=== PATIENT | female | born 1960 | race Caucasian/White ===

== ENCOUNTER 2016-09-02 23:14 | Inpatient (IN) | payer MEDICARE, MEDICAID ==
[~2016-09-02] VITALS: Ht 170.2 cm; Wt 76.8 kg
[~2016-09-02 23:14] MED LIST: AMIT25TA; AMLO5TAB2; ASPI-496; ATOR40TA78 PO; CLEM2.68 PO; DIAZ10TA4 PO; DIVA500T9; FAMO20TA7; FLUO20CA8; FURO-92 PO; GABA300C10 PO; HYDR-3138; HYDR-882 PO; HYDR50TA3; METH500T7 PO; METO25TA35; NITR0.4T SL; OMEP20TA62 PO; POTA10TA31; QUET50TA8; SIMV40TA
[2016-09-02] MEDS ORDERED: SODIUM CHLORIDE 0.9% 1,000 ML IV ONE (23:34)
[2016-09-03 00:09] LABS: ASPARTATE AMINO TRANSFERASE 18 U/L (15-37); BLOOD UREA NITROGEN 21 mg/dL (7-18)
[2016-09-03 00:17] LABS: ACETAMINOPHEN 5 mcg/mL (10-30)
[2016-09-03] MEDS: NS + 40MEQ KCL 1,000 ML IV SCH ×2 (01:00→06:00)
[2016-09-03] MEDS ORDERED: POTASSIUM CHLORIDE 20 MEQ TAB.ER.PRT PO ONE (01:00)
[2016-09-03] MEDS ORDERED: MAGNESIUM SULFATE PMX 2GM/50ML 50 ML IV ONE (01:00)
[2016-09-03] MEDS ORDERED: OMNIPAQUE 350 MG/ML, 100ML BOTTLE ONE (01:09)
[2016-09-03] MEDS ORDERED: POTASSIUM CHLORIDE 20 MEQ TAB.ER.PRT ONE (01:20)
[2016-09-03] MEDS ORDERED: NS + 40MEQ KCL 1,000 ML IV ONE (01:29)
[2016-09-03] MEDS ORDERED: ONDANSETRON 2MG/ML, 2ML IVPush PRN (02:00)
[2016-09-03] MEDS ORDERED: LORazepam 2 MG/ML, 1ML IVPush PRN (02:00)
[2016-09-03] MEDS ORDERED: NITROGLYCERIN 0.4 MG BOTTLE (25 TABS) SL PRN (02:00)
[2016-09-03] MEDS ORDERED: NICOTINE 21 MG/24 HR PATCH.TD24 TD ONE (02:30)
[2016-09-03] MEDS ORDERED: PLEASE ENTER WEIGHT MC SCH (02:30)
[2016-09-03 02:35] VITALS: BP 123/67
[2016-09-03] MEDS ORDERED: MORPHINE SULFATE 4 MG/ML, 1ML ONE (03:24)
[2016-09-03] MEDS: morphine SULFATE 10 MG/ML, 1ML IVPush PRN (03:28)
[2016-09-03] MEDS: ENOXAPARIN 40 MG/0.4 ML SQ SCH (06:30)
[2016-09-03] MEDS: FAMOTIDINE 20 MG/2 ML IVPush SCH ×2 (09:20→21:00)
[2016-09-03] MEDS: FLUOXETINE 20 MG CAPSULE PO SCH (09:20)
[2016-09-03] MEDS: GABAPENTIN 300 MG CAPSULE PO SCH ×3 (09:20→21:00)
[2016-09-03] MEDS ORDERED: SODIUM CHLORIDE 0.9% 1,000 ML IV SCH (10:00)
[2016-09-03] MEDS ORDERED: ATORVASTATIN 40 MG TABLET PO SCH (21:00)
[2016-09-04] MEDS: morphine SULFATE 10 MG/ML, 1ML IVPush PRN ×3 (04:30→15:35)
[2016-09-04] MEDS: ENOXAPARIN 40 MG/0.4 ML SQ SCH (06:40)
[2016-09-04 07:15] VITALS: BP 127/62
[2016-09-04] MEDS: GABAPENTIN 300 MG CAPSULE PO SCH ×2 (10:55→16:10)
[2016-09-04] MEDS: FAMOTIDINE 20 MG/2 ML IVPush SCH (10:55)
[2016-09-04] MEDS: FLUOXETINE 20 MG CAPSULE PO SCH (10:55)
[2016-09-04] MEDS ORDERED: DIVA500T17 PO (14:59)
[2016-09-04] MEDS ORDERED: MAGNESIUM SULFATE PMX 2GM/50ML 50 ML IV ONE ×2 (15:00→15:30)
[2016-09-04] MEDS ORDERED: NICOTINE 21 MG/24 HR PATCH.TD24 TD SCH (15:00)
[2016-09-04 15:29] VITALS: BP 117/77
[2016-09-04] MEDS ORDERED: SODIUM CHLORIDE FLUSH 3ML SYRINGE IVF SCH (21:00)
[2016-09-04] MEDS ORDERED: DIVALPROEX 500 MG TABLET.DR PO SCH (21:00)
[2016-09-06 12:48] LABS: ASPARTATE AMINO TRANSFERASE 11 U/L (15-37); BLOOD UREA NITROGEN 6 mg/dL (7-18)
== END 2016-09-04 20:25 | disposition left against medical advice (07) | DRG 641 ==
LOC: ED 23:59 → EDIP 09-03 01:11 → 5SO 09-03 02:09
PROVIDERS: ADMIT Internal Medicine; ATTEND Internal Medicine
DX: E86.0 Dehydration (principal); R55 Syncope and collapse; E78.5 Hyperlipidemia, unspecified; E83.42 Hypomagnesemia; E87.6 Hypokalemia; F17.200 Nicotine dependence, unspecified, uncomplicated; I10 Essential (primary) hypertension; I95.9 Hypotension, unspecified; M54.9 Dorsalgia, unspecified; G89.29 Other chronic pain; W18.39XA Other fall on same level, initial encounter; I25.2 Old myocardial infarction; Z80.1 Family history of malignant neoplasm of trachea, bronchus and lung; Z86.19 Personal history of other infectious and parasitic diseases; Y93.89 Activity, other specified; Y92.098 Other place in other non-institutional residence as the place of occurrence of the external cause; Z88.0 Allergy status to penicillin; Y99.8 Other external cause status
CPT/HCPCS: 36415; 70450; 71010; 72125; 74177; 80053; 80307; 80329; 82010; 82140; 83036; 83690; 83735; 84100; 84443; 85025; 85610; 86850; 86900; 93005; 96360; 96361; J1650; Q9967; G0480; J2270; J3475; J3480; J7030; S0028

== ENCOUNTER 2016-09-07 02:07 | Emergency (ER) | payer MEDICARE, MEDICAID ==
[~2016-09-07] VITALS: Ht 170.2 cm; Wt 76.0 kg
[~2016-09-07 02:07] MED LIST changes: +DIVA500T17 PO
[2016-09-07] MEDS ORDERED: ASPIRIN 81 MG TABLET CHEW ONE (02:50)
[2016-09-07] MEDS ORDERED: ASPIRIN 81 MG TABLET CHEW PO ONE (03:00)
[2016-09-07 03:02] LABS: ASPARTATE AMINO TRANSFERASE 13 U/L (15-37); BLOOD UREA NITROGEN 14 mg/dL (7-18)
[2016-09-07 03:09] LABS: IS PT STATUS REG ER OR PRE ER? YES
[2016-09-07 04:27] VITALS: BP 112/63
== END 2016-09-07 04:29 | disposition home or self-care (01) ==
LOC: ED 03:27
DX: R07.89 Other chest pain (principal); J44.9 Chronic obstructive pulmonary disease, unspecified; I10 Essential (primary) hypertension; I25.2 Old myocardial infarction; F17.210 Nicotine dependence, cigarettes, uncomplicated
CPT/HCPCS: 36415; 71010; 80053; 83735; 84100; 84484; 85025; 93005; 99285

== ENCOUNTER → 2017-06-04 | Outpatient (CLI) | payer MEDICARE, MEDICAID ==
[~2017-06-04] MED LIST changes: +DIVA-68; -DIVA500T9; -HYDR-3138; +HYDR-3237
== END | disposition home or self-care (01) ==
LOC: CFH 14:13
PROVIDERS: ATTEND Nurse Practitioner
DX: G31.89 Other specified degenerative diseases of nervous system (principal)
CPT/HCPCS: 70551

== ENCOUNTER 2017-11-14 14:46 | Emergency (ER) | payer MEDICARE, MEDICAID ==
[~2017-11-14] VITALS: Ht 170.2 cm; Wt 64.0 kg
[~2017-11-14 14:46] MED LIST changes: +DIVA-61; -DIVA-68
[2017-11-14 14:53] VITALS: BP 130/66
== END 2017-11-14 16:23 ==
LOC: ED 16:00
DX: S16.1XXA Strain of muscle, fascia and tendon at neck level, initial encounter (principal); I10 Essential (primary) hypertension; J44.9 Chronic obstructive pulmonary disease, unspecified; F31.9 Bipolar disorder, unspecified; I25.2 Old myocardial infarction; F17.200 Nicotine dependence, unspecified, uncomplicated; W18.09XA Striking against other object with subsequent fall, initial encounter; Y93.89 Activity, other specified; Y92.488 Other paved roadways as the place of occurrence of the external cause; Y99.8 Other external cause status
CPT/HCPCS: 72125; 99284

== ENCOUNTER 2018-10-01 16:09 | Emergency (ER) | payer MEDICARE, MEDICAID ==
[~2018-10-01 16:09] MED LIST changes: +AMLO-150; -AMLO5TAB2; +HYDR-3653 PO; -HYDR-882 PO; -NITR0.4T SL; +NITR0.4T41 SL; -QUET50TA8; +QUET50TA9
--- NOTE | 2018-10-01 16:32 | NUR ---
NOT IN LOBBY AT THIS TIME
--- NOTE | 2018-10-01 16:40 | NUR ---
NO ANSWER FROM LOBBY AT THIS TIME
--- NOTE | 2018-10-01 16:53 | NUR ---
NOT IN LOBBY AT THIS TIME
== END 2018-10-01 18:04 | disposition left against medical advice (07) ==
LOC: ED 17:56
DX: M25.572 Pain in left ankle and joints of left foot (principal); Z53.21 Procedure and treatment not carried out due to patient leaving prior to being seen by health care provider